=== PATIENT | female | born 1960 | race Caucasian/White ===

== ENCOUNTER 2018-11-13 15:09 | Outpatient (REF) | payer MEDICARE, SELFPAY ==
[2018-11-13 19:31] LABS: COMMENT (LAB VIEW ONLY) 178.26 mg/dL; Microalb ug/mg Crea 106.6 ug/mg Cr
== END 2018-11-13 15:29 ==
LOC: LBN 15:09
PROVIDERS: PCP Nurse Practitioner; Visit Provider Nurse Practitioner
DX: E11.9 Type 2 diabetes mellitus without complications (principal); E66.9 Obesity, unspecified; E78.5 Hyperlipidemia, unspecified; I10 Essential (primary) hypertension
CPT/HCPCS: 82043; 82570

== ENCOUNTER 2019-02-17 13:20 | Outpatient (CLI) | payer MEDICARE, SELFPAY ==
[2019-02-17 14:42] LABS: BUN 14 mg/dL (7-18); CREATININE 0.76 mg/dL (0.55-1.02); Calcium 8.6 mg/dL (8.5-10.1); Cholesterol 175 mg/dL (50-200); Glucose 128 mg/dL (70-100); HDL Cholesterol 42 mg/dL (40-60); Triglyceride 166 mg/dL (30-150)
[2019-02-17 14:43] LABS: ALT 22 U/L (12-78); AST 12 U/L (15-37); Albumin 3.5 g/dL (3.4-5.0); Alkaline Phosphatase 85 U/L (46-116); Anion Gap 9.2 mmol/L (3-11); Bilirubin, Total 0.6 mg/dL (0.2-1.0); CO2 27.8 mmol/L (21.0-32.0); Calculated LDL 100 mg/dL; Chloride 101 mmol/L (98-107); Sodium 138 mmol/L (136-145); Total Protein 6.9 g/dL (6.4-8.2)
[2019-02-17 14:48] LABS: Hemoglobin A1C 6.6 % (4.5-6.2)
== END 2019-02-17 13:40 ==
PROVIDERS: PCP Nurse Practitioner; Visit Provider Nurse Practitioner
DX: E78.5 Hyperlipidemia, unspecified (principal); I10 Essential (primary) hypertension; E11.9 Type 2 diabetes mellitus without complications; I63.50 Cerebral infarction due to unspecified occlusion or stenosis of unspecified cerebral artery; E66.9 Obesity, unspecified
CPT/HCPCS: 36415; 80053; 80061; 83721; 83036

== ENCOUNTER 2019-12-29 13:48 | Outpatient (CLI) | payer MEDICARE, SELFPAY ==
[2019-12-30 14:07] LABS: COVID-19 RT-PCR UVMMC Result Negative (Negative)
== END 2019-12-29 14:08 ==
PROVIDERS: PCP Nurse Practitioner; Visit Provider Nurse Practitioner
DX: R05 Cough (principal); R11.10 Vomiting, unspecified; R50.9 Fever, unspecified; R68.83 Chills (without fever)
CPT/HCPCS: U0003

== ENCOUNTER 2020-09-20 01:51 | Outpatient (CLI) | payer MEDICARE, SELFPAY ==
--- NOTE | 2020-09-20 15:50 | DI.MAMMO_ITS ---
EXAM: MG MAMMO SCREENING CLINICAL HISTORY: screening, Z12.39 TECHNIQUE: Bilateral full field digital CC and MLO mammographic images were obtained with 3D tomosyn thesis and utilizing computer aided detection (CAD). COMPARISON: Available for comparison. FINDINGS: Masses/Architectural Distortion: None seen. Microcalcifications: No suspicious pleomorphic-type are seen. Skin Thickening/Nipple Retraction: None. IMPRESSION: 1. No significant interval change with no specific features of malignancy noted. 2. Unless there is more urgent need, screening mammography is recommended, as per [employer] guidelines. BI-RADS Category 1 - Negative Breast Density - Category A - Almost entirely fatty Breast density category C or D implies that the patient has dense breast tissue. Dense breast tissue is very common and is not abnormal but dense breast tissue can make it harder to find cancer on a ma mmogram. Also, dense breast tissue may increase their breast cancer risk. This information about the result of the mammogram report was provided to the patient to raise their awareness. Use this report when you speak with the patient about their risks for breast cancer, which includes their family hist ory. At that time, you may recommend for more screening tests (Ultrasound or MRI) as they might be us eful based on their risk. A negative radiographic report should not delay biopsy if a dominant or clinically suspicious mass is present. Up to ten percent of cancers are not identified on mammography. A negative report may reinforce clinical impression. Adenosis and dense breasts may obscure an underlying neoplasm. False positive reports average 6 to 10%. Patient will receive a letter notifying them of these results.
== END 2020-09-20 02:11 ==
PROVIDERS: PCP Nurse Practitioner; Visit Provider Nurse Practitioner
DX: Z12.31 Encounter for screening mammogram for malignant neoplasm of breast (principal)
CPT/HCPCS: 77063; 77067

== ENCOUNTER 2020-09-27 02:50 | Outpatient (CLI) | payer MEDICARE, SELFPAY ==
[2020-09-27 10:42] LABS: Hemoglobin A1C 6.3 % (<5.7)
[2020-09-27 11:18] LABS: ALT 25 U/L (14-59); AST 13 U/L (15-37); Albumin 3.8 g/dL (3.4-5.0); Alkaline Phosphatase 87 U/L (46-116); Anion Gap 10.3 mmol/L (3-11); BUN 17 mg/dL (7-18); Bilirubin, Total 0.6 mg/dL (0.2-1.0); CO2 28.7 mmol/L (21.0-32.0); CREATININE 0.7 mg/dL (0.55-1.02); Calcium 9.1 mg/dL (8.5-10.1); Calculated LDL 110 mg/dL (<100); Chloride 100 mmol/L (98-107); Cholesterol 188 mg/dL (<200); Glucose 147 mg/dL (74-106); HDL Cholesterol 54 mg/dL (40-60); Sodium 139 mmol/L (136-145); Total Protein 7.6 g/dL (6.4-8.2); Triglyceride 122 mg/dL (<150)
== END 2020-09-27 02:51 | disposition home or self-care (01) ==
LOC: LBO 02:51
PROVIDERS: PCP Nurse Practitioner; Visit Provider Nurse Practitioner
DX: I10 Essential (primary) hypertension (principal); E11.9 Type 2 diabetes mellitus without complications; E78.5 Hyperlipidemia, unspecified; E66.9 Obesity, unspecified
CPT/HCPCS: 36415; 80053; 80061; 83036

== ENCOUNTER → 2021-11-14 13:15 | Outpatient (BNVA) | payer MEDICARE, SELFPAY | PROVIDERS: PCP Nurse Practitioner; Referring Provider Nurse Practitioner; Visit Provider Surgery | DX: S31.105A Unspecified open wound of abdominal wall, periumbilic region without penetration into peritoneal cavity, initial encounter (principal); X58.XXXA Exposure to other specified factors, initial encounter; Z51.89 Encounter for other specified aftercare; E11.9 Type 2 diabetes mellitus without complications; F17.210 Nicotine dependence, cigarettes, uncomplicated; I10 Essential (primary) hypertension; E66.9 Obesity, unspecified | CPT/HCPCS: 97605; 99203 ==

== ENCOUNTER → 2021-11-21 11:00 | Outpatient (BNVA) | payer MEDICARE, SELFPAY | PROVIDERS: PCP Nurse Practitioner; Referring Provider Nurse Practitioner; Visit Provider Surgery | DX: Z48.00 Encounter for change or removal of nonsurgical wound dressing (principal); L98.491 Non-pressure chronic ulcer of skin of other sites limited to breakdown of skin; S31.109A Unspecified open wound of abdominal wall, unspecified quadrant without penetration into peritoneal cavity, initial encounter; X58.XXXA Exposure to other specified factors, initial encounter | CPT/HCPCS: 11104; 97605; 99213 ==

== ENCOUNTER 2021-11-21 12:45 | Outpatient (REF) | payer MEDICARE, SELFPAY ==
--- NOTE | 2021-11-21 11:20 | SKI_PTH ---
PATIENT: Mckenzie Rebolledo LOC: [facility] U#:[id number] AGE/SX: 61/F ROOM: RE11/21/[address]: Julia Ortega MD : 1960 BED: DIS: 11/21/2021 SPEC #: [id number] RECD: 11/21/21 12:51 STATUS: DEANNA REQ #: [id number] ARMANDO: 11/21/21 11:[address]: Julia Ortega DEPT: Surgical Specimen RECD BY: Sabrina Chen ENTERED: 11/21/21 12:52 SP TYPE: SKI OTHR DR: Anali Sequeira APRN Tissues: 1 - SKIN BIOPSY(SHAVE/PUNCH) Procedures: SKIN LEVEL 4 Comments: [id number]
== END 2021-11-21 12:46 | disposition home or self-care (01) ==
LOC: LBN 12:45
PROVIDERS: PCP Nurse Practitioner; Visit Provider Surgery
DX: L98.491 Non-pressure chronic ulcer of skin of other sites limited to breakdown of skin (principal); L30.8 Other specified dermatitis
CPT/HCPCS: 88305

== ENCOUNTER → 2021-11-27 13:50 | Outpatient (BNVA) | payer MEDICARE, SELFPAY | PROVIDERS: PCP Nurse Practitioner; Referring Provider Nurse Practitioner; Visit Provider Physical Therapy Assistant | DX: Z48.00 Encounter for change or removal of nonsurgical wound dressing (principal) | CPT/HCPCS: 97605 ==

== ENCOUNTER → 2021-12-01 08:31 | Outpatient (BNVA) | payer MEDICARE, SELFPAY | PROVIDERS: PCP Nurse Practitioner; Referring Provider Nurse Practitioner; Visit Provider Physical Therapy Assistant | DX: S31.105A Unspecified open wound of abdominal wall, periumbilic region without penetration into peritoneal cavity, initial encounter (principal); X58.XXXA Exposure to other specified factors, initial encounter; Z51.89 Encounter for other specified aftercare | CPT/HCPCS: 97605 ==

== ENCOUNTER 2021-12-05 02:43 | Outpatient (CLI) | payer MEDICARE, SELFPAY ==
[2021-12-05 09:12] LABS: Abs Immature Grans 0.04 10^3/uL (0.0-0.06); Absolute Eosinophil Count 0.36 10^3/uL (0.0-0.7); Absolute Lymphocyte Count 2.31 10^3/uL (1.2-3.4); Absolute Monocyte Count 0.73 10^3/uL (0.1-0.8); Basophils % 0.9; Eosinophils % 3.4; HCT 45.7 % (36.0-46.0); HGB 14.1 g/dL (11.2-15.7); Immature Grans % 0.4; Lymphocytes % 21.7; MCH 25.6 pg (27.0-33.0); MCHC 30.9 % (32.0-36.0); MCV 83 fL (80-95); MPV 9.3 fL (8.0-11.0); Monocytes % 6.9; Neutrophils % 66.7; Platelet Count 373 10^3/uL (130-400); RBC 5.51 10^6/uL (3.93-5.22); RDW 15.3 % (11.7-14.6); RDW-SD 46.2 fL; WBC 10.64 10^3/uL (4.4-10.8)
[2021-12-05 09:39] LABS: Hemoglobin A1C 6.7 % (<5.7)
[2021-12-05 09:50] LABS: COMMENT (LAB VIEW ONLY) 111.53 mg/dL; Microalb ug/mg Crea 67.2 ug/mg Cr
[2021-12-05 10:34] LABS: ALT 25 U/L (14-59); AST 11 U/L (15-37); Albumin 3.8 g/dL (3.4-5.0); Alkaline Phosphatase 99 U/L (46-116); Anion Gap 12.5 mmol/L (3-11); BUN 19 mg/dL (7-18); Bilirubin, Total 0.5 mg/dL (0.2-1.0); CO2 28.5 mmol/L (21.0-32.0); CREATININE 0.8 mg/dL (0.55-1.02); Calcium 9.1 mg/dL (8.5-10.1); Calculated LDL 89 mg/dL (<100); Chloride 98 mmol/L (98-107); Cholesterol 179 mg/dL (<200); Glucose 159 mg/dL (74-106); HDL Cholesterol 52 mg/dL (40-60); Sodium 139 mmol/L (136-145); Triglyceride 192 mg/dL (<150)
== END 2021-12-05 02:44 | disposition home or self-care (01) ==
LOC: LBO 02:43
PROVIDERS: PCP Nurse Practitioner; Visit Provider Nurse Practitioner
DX: E11.9 Type 2 diabetes mellitus without complications (principal); E66.9 Obesity, unspecified; I10 Essential (primary) hypertension; F17.210 Nicotine dependence, cigarettes, uncomplicated; R79.9 Abnormal finding of blood chemistry, unspecified; Z51.89 Encounter for other specified aftercare
CPT/HCPCS: 36415; 80053; 80061; 97605; 99213; 82043; 82570; 83036; 84443; 85025

== ENCOUNTER → 2021-12-08 14:19 | Outpatient (BNVA) | payer MEDICARE, SELFPAY | PROVIDERS: PCP Nurse Practitioner; Referring Provider Nurse Practitioner; Visit Provider Physical Therapy Assistant | DX: Z48.00 Encounter for change or removal of nonsurgical wound dressing (principal); S31.105A Unspecified open wound of abdominal wall, periumbilic region without penetration into peritoneal cavity, initial encounter; X58.XXXA Exposure to other specified factors, initial encounter | CPT/HCPCS: 99213 ==

== ENCOUNTER → 2021-12-12 13:12 | Outpatient (BNVA) | payer MEDICARE, SELFPAY | PROVIDERS: PCP Nurse Practitioner; Referring Provider Nurse Practitioner; Visit Provider Physical Therapy Assistant | DX: Z51.89 Encounter for other specified aftercare (principal); S31.105A Unspecified open wound of abdominal wall, periumbilic region without penetration into peritoneal cavity, initial encounter; X58.XXXA Exposure to other specified factors, initial encounter | CPT/HCPCS: 99213 ==

== ENCOUNTER → 2021-12-18 13:13 | Outpatient (BNVA) | payer MEDICARE, SELFPAY | PROVIDERS: PCP Nurse Practitioner; Referring Provider Nurse Practitioner; Visit Provider Physical Therapy Assistant | DX: S31.105A Unspecified open wound of abdominal wall, periumbilic region without penetration into peritoneal cavity, initial encounter (principal); X58.XXXA Exposure to other specified factors, initial encounter; F17.210 Nicotine dependence, cigarettes, uncomplicated; Z51.89 Encounter for other specified aftercare | CPT/HCPCS: 99213 ==

== ENCOUNTER → 2021-12-20 11:32 | Outpatient (BNVA) | payer MEDICARE, SELFPAY | PROVIDERS: PCP Nurse Practitioner; Referring Provider Nurse Practitioner; Visit Provider Physical Therapy Assistant | DX: S31.105A Unspecified open wound of abdominal wall, periumbilic region without penetration into peritoneal cavity, initial encounter (principal); X58.XXXA Exposure to other specified factors, initial encounter; Z51.89 Encounter for other specified aftercare | CPT/HCPCS: 99213 ==

== ENCOUNTER → 2021-12-22 13:14 | Outpatient (BNVA) | payer MEDICARE, SELFPAY | PROVIDERS: PCP Nurse Practitioner; Referring Provider Nurse Practitioner; Visit Provider Physical Therapy Assistant | DX: S31.105A Unspecified open wound of abdominal wall, periumbilic region without penetration into peritoneal cavity, initial encounter (principal); X58.XXXA Exposure to other specified factors, initial encounter; Z51.89 Encounter for other specified aftercare | CPT/HCPCS: 99213 ==

== ENCOUNTER → 2021-12-25 13:16 | Outpatient (BNVA) | payer MEDICARE, SELFPAY | PROVIDERS: PCP Nurse Practitioner; Referring Provider Nurse Practitioner; Visit Provider Physical Therapy Assistant | DX: S31.105A Unspecified open wound of abdominal wall, periumbilic region without penetration into peritoneal cavity, initial encounter (principal); X58.XXXA Exposure to other specified factors, initial encounter; Z51.89 Encounter for other specified aftercare | CPT/HCPCS: 99212 ==

== ENCOUNTER → 2021-12-27 12:55 | Outpatient (BNVA) | payer MEDICARE, SELFPAY | PROVIDERS: PCP Nurse Practitioner; Referring Provider Nurse Practitioner; Visit Provider Physical Therapy Assistant | DX: S31.105A Unspecified open wound of abdominal wall, periumbilic region without penetration into peritoneal cavity, initial encounter (principal); X58.XXXA Exposure to other specified factors, initial encounter; Z51.89 Encounter for other specified aftercare | CPT/HCPCS: 99212 ==

== ENCOUNTER → 2021-12-29 12:59 | Outpatient (BNVA) | payer MEDICARE, SELFPAY | PROVIDERS: PCP Nurse Practitioner; Referring Provider Nurse Practitioner; Visit Provider Physical Therapy Assistant | DX: S31.105D Unspecified open wound of abdominal wall, periumbilic region without penetration into peritoneal cavity, subsequent encounter (principal); X58.XXXD Exposure to other specified factors, subsequent encounter | CPT/HCPCS: 99212 ==

== ENCOUNTER → 2022-01-01 14:21 | Outpatient (BNVA) | payer MEDICARE, SELFPAY | PROVIDERS: PCP Nurse Practitioner; Referring Provider Nurse Practitioner; Visit Provider Physical Therapy Assistant | DX: S31.105D Unspecified open wound of abdominal wall, periumbilic region without penetration into peritoneal cavity, subsequent encounter (principal); X58.XXXD Exposure to other specified factors, subsequent encounter | CPT/HCPCS: 99212 ==

== ENCOUNTER → 2022-01-03 13:02 | Outpatient (BNVA) | payer MEDICARE, SELFPAY | PROVIDERS: PCP Nurse Practitioner; Referring Provider Nurse Practitioner; Visit Provider Physical Therapy Assistant | DX: S31.105D Unspecified open wound of abdominal wall, periumbilic region without penetration into peritoneal cavity, subsequent encounter (principal); X58.XXXD Exposure to other specified factors, subsequent encounter | CPT/HCPCS: 99212 ==

== ENCOUNTER → 2022-01-05 13:39 | Outpatient (BNVA) | payer MEDICARE, SELFPAY | PROVIDERS: PCP Nurse Practitioner; Referring Provider Nurse Practitioner; Visit Provider Physical Therapy Assistant | DX: S31.105D Unspecified open wound of abdominal wall, periumbilic region without penetration into peritoneal cavity, subsequent encounter (principal); X58.XXXD Exposure to other specified factors, subsequent encounter | CPT/HCPCS: 99212 ==

== ENCOUNTER → 2022-01-08 13:01 | Outpatient (BNVA) | payer MEDICARE, SELFPAY | PROVIDERS: PCP Nurse Practitioner; Referring Provider Nurse Practitioner; Visit Provider Physical Therapy Assistant | DX: S31.105D Unspecified open wound of abdominal wall, periumbilic region without penetration into peritoneal cavity, subsequent encounter (principal); X58.XXXD Exposure to other specified factors, subsequent encounter | CPT/HCPCS: 99212 ==

== ENCOUNTER → 2022-01-10 09:41 | Outpatient (BNVA) | payer MEDICARE, SELFPAY | PROVIDERS: PCP Nurse Practitioner; Referring Provider Nurse Practitioner; Visit Provider Physical Therapy Assistant | DX: S31.105D Unspecified open wound of abdominal wall, periumbilic region without penetration into peritoneal cavity, subsequent encounter (principal); X58.XXXD Exposure to other specified factors, subsequent encounter | CPT/HCPCS: 99212 ==

== ENCOUNTER → 2022-01-12 12:59 | Outpatient (BNVA) | payer MEDICARE, SELFPAY | PROVIDERS: PCP Nurse Practitioner; Referring Provider Nurse Practitioner; Visit Provider Physical Therapy Assistant | DX: S31.105D Unspecified open wound of abdominal wall, periumbilic region without penetration into peritoneal cavity, subsequent encounter (principal); X58.XXXD Exposure to other specified factors, subsequent encounter | CPT/HCPCS: 99212 ==

== ENCOUNTER → 2022-01-19 12:59 | Outpatient (BNVA) | payer MEDICARE, SELFPAY | PROVIDERS: PCP Nurse Practitioner; Referring Provider Nurse Practitioner; Visit Provider Physical Therapy Assistant | DX: S31.105D Unspecified open wound of abdominal wall, periumbilic region without penetration into peritoneal cavity, subsequent encounter (principal); X58.XXXD Exposure to other specified factors, subsequent encounter | CPT/HCPCS: 99212 ==

== ENCOUNTER → 2022-01-23 13:45 | Outpatient (BNVA) | payer MEDICARE, SELFPAY | PROVIDERS: PCP Nurse Practitioner; Referring Provider Nurse Practitioner; Visit Provider Surgery | DX: S31.105A Unspecified open wound of abdominal wall, periumbilic region without penetration into peritoneal cavity, initial encounter (principal); X58.XXXA Exposure to other specified factors, initial encounter | CPT/HCPCS: 99212 ==

== ENCOUNTER → 2022-01-26 13:37 | Outpatient (BNVA) | payer MEDICARE, SELFPAY | PROVIDERS: PCP Nurse Practitioner; Referring Provider Nurse Practitioner; Visit Provider Physical Therapy Assistant | DX: S31.105A Unspecified open wound of abdominal wall, periumbilic region without penetration into peritoneal cavity, initial encounter (principal); X58.XXXA Exposure to other specified factors, initial encounter; F17.210 Nicotine dependence, cigarettes, uncomplicated | CPT/HCPCS: 99213 ==

== ENCOUNTER 2022-01-29 00:01 | Outpatient (CLI) | payer MEDICARE, SELFPAY ==
--- NOTE | 2022-01-29 13:53 | DI.US_ITS ---
APPROVED REPORT EXAM: Comprehensive 2D, Doppler, and color-flow Echocardiogram Patient Location: Out-Patient [employer] Installer: Grecia Lopez RDCS (AE) Indications: Tachycardia Other Information Study Quality: Fair. Technically limited study due to body habitus, smoker. Conclusion Normal left ventricular wall thickness and chamber size. Estimated ejection fraction 55 to 60%. Wal l motion is normal Right ventricle appears grossly normal in size and systolic function The atria are normal in size There is no structural or hemodynamically significant valvular disease Borderline dilated ascending aorta, 3.37 cm Wall motion Left Ventricle The left ventricle is normal size. The left ventricular systolic function is normal. The left ventric ular ejection fraction is within the normal range. There is normal left ventricular wall thickness. T here is normal LV segmental wall motion. There is no ventricular septal defect visualized. LVEF is 55 -60%. Right Ventricle Right ventricle is grossly normal in size. Right ventricular systolic function is grossly normal. Atria The left atrium size is normal. The right atrium size is normal. The interatrial septum is intact wit h no evidence for an atrial septal defect. Aortic Valve The aortic valve is normal in structure. There is no aortic valvular stenosis. No aortic regurgitatio n is present. Mitral Valve The mitral valve is normal in structure. No evidence of mitral valve stenosis. Trace mitral regurgita tion. Tricuspid Valve The tricuspid valve is normal in structure. There is no tricuspid valve stenosis. Trace tricuspid reg urgitation. Pulmonic Valve Pulmonic valve is not well visualized. There is no pulmonic valvular stenosis. There is no pulmonic v alvular regurgitation. Great Vessels The aortic root is normal in size. The ascending aorta is borderline dilated. Aortic arch is normal i n caliber. IVC is normal in size and collapses >50% with inspiration. Pericardium There is no pericardial effusion. 2D Dimensions IVSD d PLAX 1.03 cm F: 0.6-1.0 LVPW d PLAX 1.03 cm F: 0.6 - 1.0 LVID d PLAX 4.64 cm F: 3.8 - 5.2 LVDs 3.30 cm F: 2.2 - 3.5 Ao Root d 2.64 cm F: 2.7 - 3.3 RA Area A4C 10.30 cm2 RA Vol/ BSA A4C s A-L 12.6 mL/m2 Ao Asc Diam d 3.37 cm F: 2.3 - 3.1 LV EF Teichholz 55.2 % FS 28.60 % M-Mode TAPSE 1.75 cm (M/F) >1.7 Aortic Valve LVOT Area 3.10 cm2 AoV Area Vmax 2.90 cm2 LVOT Vmax 1.09 m/s AoV Area/ BSA (Vmax) 1.52 cm2/m2 LVOT Mean Isaac. 0.77 m/s SELVIN Mean Isaac. 2.80 cm2 LVOT Peak Grad 4.8 mmHg SELVIN Mean Isaac. Index 1.47 cm2/m2 LVOT Mean Grad 2.7 mmHg LVOT VTI 0.166 m LVOT Diam s 1.95 cm AoV Vmax 1.17 m/s Velocity Ratio 0.93 AoV Mean Isaac. 0.86 m/s AoV Peak Grad 5.4 mmHg LVOT SV 51.51 mL AoV Mean Grad 3.2 mmHg AoV VTI 0.171 m AoV Area VTI 3.01 cm2 AoV Area/ BSA (VTI) 1.58 cm/m2 Mitral Valve MV VTI 0.154 m MV Area VTI 3.34 (4.0-6.0 cm2) Pulmonary Valve PV Vmax 0.81 (0.5-1.5 m/s) RVOT Peak Gr. 3.14 mmHg PV Peak Grad 2.7 mmHg RVOT Mean Gr. 1.60 mmHg PV Mean Grad 1.6 mmHg RVOT VTI 0.122 m PV VTI 0.135 m RVOT Vmax 0.89 m/s
== END 2022-01-29 00:21 ==
LOC: DI 00:02
PROVIDERS: PCP Nurse Practitioner; Visit Provider Nurse Practitioner
DX: R00.0 Tachycardia, unspecified (principal)
CPT/HCPCS: 93306; 99213

== ENCOUNTER → 2022-02-01 13:03 | Outpatient (BNVA) | payer MEDICARE, SELFPAY | PROVIDERS: PCP Nurse Practitioner; Referring Provider Nurse Practitioner; Visit Provider Physical Therapy Assistant | DX: S31.105A Unspecified open wound of abdominal wall, periumbilic region without penetration into peritoneal cavity, initial encounter (principal); X58.XXXA Exposure to other specified factors, initial encounter; Z51.89 Encounter for other specified aftercare | CPT/HCPCS: 99213 ==

== ENCOUNTER → 2022-02-05 13:06 | Outpatient (BNVA) | payer MEDICARE, SELFPAY | PROVIDERS: PCP Nurse Practitioner; Referring Provider Nurse Practitioner; Visit Provider Physical Therapy Assistant | DX: S31.105D Unspecified open wound of abdominal wall, periumbilic region without penetration into peritoneal cavity, subsequent encounter (principal); X58.XXXD Exposure to other specified factors, subsequent encounter; F17.210 Nicotine dependence, cigarettes, uncomplicated; Z51.89 Encounter for other specified aftercare | CPT/HCPCS: 99213 ==

== ENCOUNTER → 2022-02-13 13:01 | Outpatient (BNVA) | payer MEDICARE, SELFPAY | PROVIDERS: PCP Nurse Practitioner; Referring Provider Nurse Practitioner; Visit Provider Physical Therapy Assistant | DX: S31.105D Unspecified open wound of abdominal wall, periumbilic region without penetration into peritoneal cavity, subsequent encounter (principal); X58.XXXD Exposure to other specified factors, subsequent encounter; Z51.89 Encounter for other specified aftercare | CPT/HCPCS: 99213 ==

== ENCOUNTER 2022-02-19 04:27 | Outpatient (RCR) | payer MEDICARE, SELFPAY ==
--- NOTE | 2022-02-19 13:00 | HOLTER_ITS ---
APPROVED REPORT Conclusion This is a 48-hour Holter monitor ordered for tachycardia Predominant rhythm was sinus. Average heart rate was 99, minimum 78, maximum 144. Heart rate during sleep fell generally into the 80s, while awake average 1 10-1 30 There were very rare isolated ventricular ectopic beats There were very rare isolated atrial premature beats There was no atrial fibrillation, no high-grade AV block, no pauses greater than 3 seconds No patient symptoms were reported
== END 2022-03-14 23:59 | disposition home or self-care (01) ==
LOC: RT 04:27
PROVIDERS: PCP Nurse Practitioner; Visit Provider Nurse Practitioner
DX: R00.0 Tachycardia, unspecified (principal)
CPT/HCPCS: 93227; 93225; 93226

== ENCOUNTER → 2022-02-20 13:01 | Outpatient (BNVA) | payer MEDICARE, SELFPAY | PROVIDERS: PCP Nurse Practitioner; Referring Provider Nurse Practitioner; Visit Provider Physical Therapy Assistant | DX: S31.105A Unspecified open wound of abdominal wall, periumbilic region without penetration into peritoneal cavity, initial encounter (principal); X58.XXXA Exposure to other specified factors, initial encounter; R00.0 Tachycardia, unspecified; F17.210 Nicotine dependence, cigarettes, uncomplicated; Z51.89 Encounter for other specified aftercare | CPT/HCPCS: 99213 ==

== ENCOUNTER → 2022-02-27 12:59 | Outpatient (BNVA) | payer MEDICARE, SELFPAY | PROVIDERS: PCP Nurse Practitioner; Referring Provider Nurse Practitioner; Visit Provider Surgery | DX: S31.105A Unspecified open wound of abdominal wall, periumbilic region without penetration into peritoneal cavity, initial encounter (principal); X58.XXXA Exposure to other specified factors, initial encounter; Z51.89 Encounter for other specified aftercare | CPT/HCPCS: 99212 ==

== ENCOUNTER → 2022-03-01 02:11 | Outpatient (CLI) | payer MEDICARE, SELFPAY ==
--- NOTE | 2022-03-01 07:15 | DI.MAMMO_ITS ---
Exam(s) MAMMO SCREENING EXAM: MAMMO SCREENING CLINICAL HISTORY: screening,z12.39 TECHNIQUE: Mammograms were interpreted according to the usual protocol including computer analysis w [employer] CAD system, tomosynthesis and C-view imaging. COMPARISON: 2012 through 2020 FINDINGS: The breasts are composed of mainly fatty density , Breast Density category A. No suspicious masses or suspicious microcalcifications are seen. No skin thickening or abnormal axillary lymph nodes are seen. There has been no significant change from prior exams. IMPRESSION: BI-RADS Category 1, Negative mammogram Yearly screening mammography is recommended. Breast Density - Category A, fatty density. A negative radiographic report should not delay biopsy if a dominant or clinically suspicious mass is present. Up to ten percent of cancers are not identified on mammography. A negative report may reinforce clinical impression. Adenosis and dense breasts may obscure an underlying neoplasm. False positive reports average 6 to 10%. Patient will receive a letter notifying them of these results.
== END ==
PROVIDERS: PCP Nurse Practitioner; Visit Provider Nurse Practitioner
DX: Z12.31 Encounter for screening mammogram for malignant neoplasm of breast (principal)
CPT/HCPCS: 77063; 77067

== ENCOUNTER → 2022-03-06 13:05 | Outpatient (BNVA) | payer MEDICARE, SELFPAY | PROVIDERS: PCP Nurse Practitioner; Referring Provider Nurse Practitioner; Visit Provider Surgery | DX: Z51.89 Encounter for other specified aftercare (principal); S31.105A Unspecified open wound of abdominal wall, periumbilic region without penetration into peritoneal cavity, initial encounter; X58.XXXA Exposure to other specified factors, initial encounter | CPT/HCPCS: 99212 ==

== ENCOUNTER 2022-03-12 03:44 | Outpatient (CLI) | payer MEDICARE, SELFPAY ==
[2022-03-12 12:09] LABS: Source Nasal/Nares
[2022-03-12 15:15] LABS: COVID-19 PCR Negative (Negative)
== END 2022-03-12 03:45 | disposition home or self-care (01) ==
LOC: LBO 03:44
PROVIDERS: PCP Nurse Practitioner; Visit Provider Surgery
DX: Z01.818 Encounter for other preprocedural examination (principal); Z20.822 Contact with and (suspected) exposure to COVID-19
CPT/HCPCS: 87635

== ENCOUNTER 2022-03-14 05:52 | Day surgery (SDC) | payer MEDICARE, SELFPAY ==
[2022-03-14] VITALS (8 sets, daily range): BP systolic 120–195; BP diastolic 69–94; PULSE 88–98; RESP 14–97; TEMP 36.4–36.7; O2SAT 89–100; BMI 41.6
--- NOTE | 2022-03-14 06:39 | ROE_ITS ---
Date of service: 03/14/22 Time of Service: 07:45 Operative Note Operative Note DATE OF PROCEDURE: 03/14/22 PRE-OP DIAGNOSIS: chronic abdominal wound POST-OP DIAGNOSIS: same PROCEDURE: Skin graft to chronic wound with AYLEEN application SURGEON: Julia Ortega DIALYSIS CHIEF EQUIPMENT TECHNICIAN: Katie Mercado Refer to Anesthesia Record PATHOLOGY: none sent COMPLICATIONS: None Patient was transported to: same day Patient's condition: stable Indications: Mckenzie is a pleasant 62-year-old female who have both been seen for quite some time for chronic anterior abdominal wound.? It is slowly getting some epithelialization.? I recommended placing a skin graft to the try to get the wound to close a little bit faster.? Surgery was reviewed with the patient as well as the risks and benefits.? Complications include but are not limited to bleeding, infection, skin graft necrosis. Questions were entertained and answered to her satisfaction and she wished to proceed. Findings: some granulation tissue on the chronic wound Procedure Description: After informed consent was obtained the patient was taken to the operating room. She was placed in a supine position sitting at the edge of the table. A spinal anesthetic was attempted by anesthesia but after numerous tries this was unsuccessful. The patient was then asked to lay down and she was placed under general anesthesia and an LMA was placed. At this time a timeout was done. The patient's name and date of , allergies to medications, procedure to be done, DVT prophylaxis, antibiotic given were all reviewed. Fire risk was assessed. Next the patient's abdomen was prepped with iodine. Her right upper thigh was prepped with chlorhexidine. Both areas with then draped in a sterile standard fashion. At this point Quarter percent bupivacaine with epinephrine was injected into the dermis and subcutaneous tissue on the right upper thigh. Mineral oil was then applied to the skin. A 5 x 7 cm piece of split thickness skin graft was then removed from the right upper thigh. The skin was placed through the mesher. A moist lap was placed over the donor site. Next the abdominal wound was gently scraped at the edges to make sure that there was good bleeding. Any fibrinous tissue was removed. The meshed skin was then placed onto the wound and secured with 5-0 Vicryl sutures circumferentially. The entire wound was covered. The wound measured 8.5 x 6.5 x 0.2 cm. The skin around the skin graft was then cleaned with a moist lap. The skin was dried. A Vaseline dressing was applied to the skin graft and to ayleen dressings were applied to the wound. There was a good seal when the suction was turned on. The donor side was then cleaned and dried. Another piece of Xeroform was applied to the donor site and covered with Tegaderm. The patient was transferred from the operating room table to the [facility] and woken up, extubated and taken back to recovery in stable condition. There were no immediate complications. Needle and instrument counts were correct.
[2022-03-14] MEDS: Acetaminophen 500 MG TAB 1000 MG PO (06:42)
[2022-03-14] MEDS: Normal Saline 1,000 ML 30 ML IV (06:42)
[2022-03-14] MEDS: Gabapentin 300 MG CAP 600 MG PO (06:42)
[2022-03-14] MEDS: Celecoxib 200 MG CAP PO (06:42)
--- NOTE | 2022-03-14 06:42 | PDOC.DSDIS_ITS ---
Discharge Plan Disposition Patient Disposition: HOME Condition: Good Discharge Details Reason For Visit: skin graft Attending Provider: Julia Ortega Primary Care Provider: Anali Sequeira Home Meds and New Rx's Prescriptions: Continued (DME) blood sugar diagnostic strip See Dose Instructions .ROUTE .MEDSUPPLY Qty: 50 12RF Dose Instruction: As directed Rx Instructions: Test daily MediHoney (honey) 80 % gel 1 applic topical BID Qty: 44 3RF Rx Instructions: apply BID to abdominal wound mupirocin 2 % ointment 1 applic topical DAILY Qty: 22 0RF Rx Instructions: apply to abdominal wound daily PRN amitriptyline 100 mg tablet 100 mg PO QHS Qty: 90 3RF lisinopril 5 mg tablet 5 mg PO DAILY Qty: 90 3RF meloxicam 15 mg tablet 15 mg PO DAILY Qty: 90 3RF sertraline 100 mg tablet 150 mg PO DAILY Qty: 135 3RF Rx Instructions: 1.5 tabs daily spironolactone 100 mg tablet 100 mg PO DAILY Qty: 90 3RF oxycodone 5 mg tablet 5 mg PO 5X/DAY MDD 25mg PRN (Reason: pain) Qty: 140 0RF multivitamin 1 EACH tablet 1 ea PO DAILY ascorbic acid (vitamin C) 250 MG tablet 500 mg PO DAILY PRN aspirin 325 MG tablet 325 mg PO DAILY calcium carbonate [Tums Ultra] 400 MG tablet,chewable 400 mg PO BID cholecalciferol (vitamin D3) 1,000 UNIT tablet 1,000 unit PO DAILY sennosides-docusate sodium [Senna with Docusate Sodium] 1 EACH tablet 1 - 2 tab-cap PO DAILY Rx Instructions: 10/11/15 pt states works well RH betamethasone dipropionate 0.05 % cream 1 applic TP BID PRN (Reason: rsh knees, elbows) Qty: 45 3RF omeprazole 40 mg capsule,delayed release(DR/EC) 40 mg PO BID Qty: 180 3RF lovastatin 40 mg tablet 40 mg PO DAILY Qty: 90 3RF Rx Instructions: to lower cholesterol metformin 500 mg tablet 500 mg PO BID Qty: 180 3RF Rx Instructions: for diabetes acetaminophen 500 MG tablet 500 - 1,000 mg PO Q6H PRN PRN Discharge Instructions Additional Instructions: Activity at Home after surgery: 1. As tolerated Diet, Nutrition, & wound healin. Avoid alcohol until after you are recovered from your surgery 2. Make sure to eat plenty of lean protein (meat, fish, eggs, cottage cheese, beans) 3. Eat a variety of fruits and vegetables. Eat plenty of high fiber f oods to avoid constipation. 4. Drink plenty of liquids to stay hydrated and avoid constipation Pain Medications: 1. Tylenol 650mg every 6 hours as needed and Ibuprofen 600 mg every 6 hours as needed. You may alternate between the 2 medications every 3 hours 2. If a narcotic has been prescribed take as directed only for breakthrough pain For Constipation: 1. Take Milk of Magnesia or MiraLax as needed for constipation Other: 1. You may only sponge bathe for the next week 2. You may alternate ice Wound Care: 1. Keep the incisions clean and dry Please call our office if you develop: 1. Fevers >101.5 2. Nausea or Vomiting 3. Worsening pain 4. Redness and thick discharge from the wounds If after hours please call the Hospital at and ask to speak to the on-call surgeon Referrals: Julia Ortega MD [ [facility] STAFF PHYSICIAN] - 03/20/22 9:45 am Activity:: Activity as Tolerated Remove Dressings/Wound Care:: Do Not Remove Diet:: As Tolerated Discharge Orders Discharge Orders: Discharge Order (Routine); Ordered 03/14/22 Ordered By: Julia Ortega
--- NOTE | 2022-03-14 07:03 | W.ANESPRE ---
General Info Date of Service Date Performed: 03/14/22 Height: 5 ft Weight: 96.8 kg Body Mass Index (BMI): 41.6 Surgical Procedure: Operation Date: 03/14/22 07:40 Proposed Procedure Side Surgeon p Skin Graft from Lt Upper Thigh to Abdominal Wound Left Julia Ortega MD Meds Allergies and Home Medications Allergies Allergy/AdvReac Type Severity Reaction Status Date / Time codeine Allergy Severe rash Verified 03/14/22 06:23 itching Penicillins Allergy Intermediate rash Verified 03/14/22 06:23 fentanyl AdvReac Severe Dizziness/L Verified 03/14/22 06:23 ightheade Home Medication Medication Instructions Recorded ascorbic acid (vitamin C) 250 mg 500 mg PO DAILY PRN 09/16/12 tablet multivitamin 1 ea PO DAILY 09/16/12 aspirin 325 mg tablet 325 mg PO DAILY 06/02/13 calcium carbonate 400 mg calcium 400 mg PO BID 05/12/14 (1,000 mg) chewable tablet (Tums Ultra) cholecalciferol (vitamin D3) 25 1,000 unit PO DAILY 05/12/14 mcg (1,000 unit) tablet sennosides 8.6 mg-docusate sodium 1 - 2 tab-cap PO DAILY 10/11/15 50 mg tablet (Senna with Docusate Sodium) acetaminophen 500 mg tablet 500 - 1,000 mg PO Q6H PRN PRN 12/19/16 blood sugar diagnostic #50 ea 11/13/18 betamethasone dipropionate 0.05 % 1 applic topical BID PRN rsh 01/12/20 topical cream knees, elbows #45 grams lisinopril 5 mg tablet 5 mg PO DAILY #90 tab-caps 09/04/21 meloxicam 15 mg tablet 15 mg PO DAILY #90 tabs 09/04/21 sertraline 100 mg tablet 150 mg PO DAILY #135 tab-caps 09/04/21 spironolactone 100 mg tablet 100 mg PO DAILY #90 tab-caps 09/04/21 omeprazole 40 mg capsule,delayed 40 mg PO BID #180 caps 09/05/21 release amitriptyline 100 mg tablet 100 mg PO QHS #90 tabs 11/13/21 honey 80 % topical gel (MediHoney 1 applic topical BID #44 mL 11/13/21 (honey)) mupirocin 2 % topical ointment 1 applic topical DAILY #22 grams 11/13/21 lovastatin 40 mg tablet 40 mg PO DAILY #90 tabs 12/04/21 oxycodone 5 mg tablet 5 mg PO 5X/DAY PRN pain #140 tabs 02/13/22 metformin 500 mg tablet 500 mg PO BID #180 tabs 03/05/22 Current Visit Medications: Current Medications Generic Name Dose Route Start Last Admin Trade Name Freq PRN Reason Stop Dose Admin Acetaminophen 1,000 mg 03/14/22 06:00 03/14/22 06:42 Acetaminophen 500 Mg Tab PO 03/14/22 16:00 1,000 mg PREOP NOA Administration Celecoxib 200 mg 03/14/22 06:00 03/14/22 06:42 Celecoxib 200 Mg Cap PO 03/14/22 16:00 200 mg PREOP NOA Administration Gabapentin 600 mg 03/14/22 06:00 03/14/22 06:42 Gabapentin 300 Mg Cap PO 03/14/22 16:00 600 mg PREOP NOA Administration Sodium Chloride 1,000 mls @ 30 mls/hr 03/14/22 06:00 03/14/22 06:42 Saline 1000ml Bag IV 03/27/22 05:59 30 mls/hr INFUSION NOA Administration Cefazolin Sodium/Dextrose 2 gm in 50 mls @ 100 mls/hr 03/14/22 06:00 Ancef Duplex IVPB 03/14/22 16:00 PREOP NOA Ondansetron HCl 4 mg/ Sodium 52 mls @ 200 mls/hr 03/14/22 06:41 Chloride IVPB Q6H PRN PRN IV Miscellaneous Supplies 1 each 03/14/22 06:00 Iv Access IV 04/12/22 23:59 DIRECTED NOA Sodium Chloride 0 ml 03/14/22 06:00 Normal Saline Flush 10 Ml Syr IV 04/12/22 23:59 PRN PRN Sodium Chloride 0 ml 03/14/22 06:00 Normal Saline 10 Ml Vial IJ 04/12/22 23:59 DIRECTED PRN Sterile Water 0 ml 03/14/22 06:00 Water,Injection,Sterile 10 Ml Vial IJ 04/12/22 23:59 DIRECTED PRN Tramadol HCl 50 mg 03/14/22 06:41 Tramadol 50 Mg Tab PO Q6H PRN PRN Pain PFSH Active Problems Active Problems: Problem Status Onset Code Wound, open, abdominal wall, anterior S31.109A Diabetes mellitus type 2 in obese E11.69, E66.9 Abscess of left lower extremity L02.416 Painful orthopaedic hardware T84.84XA Tobacco dependence F17.200 Continuous chewing tobacco dependence 02/27/13 F17.220 Psoriasis 12/10/14 L40.9 Obesity 02/27/13 E66.9 Unspecified cerebral artery occlusion with cerebral infarction 07/20/11 I63.50 Medical History Medical History Abdominal pain (12/10/14) Abnormal blood chemistry Cervicalgia (07/20/11) Spine Center [facility] eval, 2004 Osteoarthritis Chills Chronic pain (09/02/13) Chronic pain Chronic pain of both shoulders (03/20/16) Cough Diabetes mellitus type 2 in nonobese (12/30/12) dx'ed 2011 at [facility] Disorder of back (07/20/11) [facility] work-up 2004 Osteoarthritis Essential hypertension (07/20/11) goal less 140/90 Fever Hirsutism (05/16/17) Hyperlipidemia (07/20/11) LDL goal 130 Lesion of nose Major depressive disorder, recurrent, unspecified (03/20/16) PCOS (polycystic ovarian syndrome) (02/18/18) Rotator cuff tear, right (~1976) Routine general medical examination at a health care facility Routine medical exam Spondylosis of cervical region without myelopathy or radiculopathy Tobacco smoke exposure (07/20/11) 1PPD Vomiting Surgical History Surgical History Abdominal hysterectomy (07/15/00) KATELIN/BSO not exact date [facility] Bimalleolar fracture (~01/2014) History of repair of inguinal hernia (~2004) Left elbow fracture (Unknown) Open abdominal wall wound (09/19/10) Repair of inguinal hernia (~2001) 2001,2005 DR JOSEPH S/P hardware removal 09/15/18 Left ankle ([facility]) Tobacco Smoking/Tobacco Use Status: Former Tobacco Use Alcohol Alcohol Intake: current Alcohol intake frequency: a few times a week Alcohol type: wine Substance Use Substance use: Occasionally Substance use type: marijuana Vital Signs and Lab Results Vital Signs Most Recent Vital Signs in EMR: Most Recent Vital Signs Temp Pulse Resp BP Pulse Ox 36.4 C L 94 H 18 146/89 H 100 03/14/22 06:15 03/14/22 06:15 03/14/22 06:15 03/14/22 06:15 03/14/22 06:15 Lab Results Blood Type / Crossmatch: No Data to Display Complete Blood Count: No Data to Display Complete Metabolic Panel: No Data to Display Liver Function Panel: No Data to Display Coagulation Panel: No Data to Display Cardiac Panel: No Data to Display Arterial Blood Gas: No Data to Display Venous Blood Gas: No Data to Display Pancreas Panel: No Data to Display Thyroid Panel: No Data to Display Infectious Disease: Coronavirus (COVID-19)(PCR) Negative (Negative) 03/12/22 11:00 Coronavirus 2019 Source Nasal/Nares 03/12/22 11:00 Blood Cultures: No Data to Display Toxicology Panel: No Data to Display Anesthesia Assessment and Plan Anesthesia History Personal History: No History of Anesthesia Complications Family History: No Family History of Anesthesia Complications Exercise Tolerance Exercise Tolerance: Metabolic Equivalents>4 Pertinent Negatives Pertinent Negatives: No Symptoms of GERD (Well controlled with medication ), No Major Cardiovascular Symptoms or Complaints, No Major Pulmonary Symptoms or Complaints (Smoker 50 pack years) and No History of CVA/TIA (Left occipital stroke 2010) Cardiac & Pulmonary Exam Cardiac Exam: Normal S1/S2 Heart Sounds Pulmonary Exam: Clear Bilateral Breath Sounds Implantable Cardiac Device Does patient have a Pacemaker or an ICD?: No Airway Exam Known Difficult Airway: No Mallampati Class: 4 Mouth Opening: Normal (> 3cm) Thyromental Distance: Less than 3 cm Neck Range of Motion: Full ROM and Limited ROM Neck Circumference: Thick Teeth Condition: Generalized Poor Dentition (Denies loose teeth ) ASA Classification ASA Score: ASA 3 Emergency Case?: No NPO Status NPO Status: NPO Clears >2 hours, Solids >8 hours Anesthesia Plan Resuscitation Status: Full Code Anesthesia Technique: Spinal Anesthesia Airway Planned: Natural Airway Monitors Used: Standard Monitors
[2022-03-14] MEDS: ceFAZolin 2 GM/50 ML BAG IVPB (07:33)
[2022-03-14] MEDS: Bupivacaine 0.25% Pres-Free W/EPI 30 ML VIAL (08:23)
--- NOTE | 2022-03-14 11:11 | W.ANESPOSTOP ---
Postoperative Evaluation Date, Time and Location Date Performed: 03/14/22 Time Performed: 11:12 Patient Location: Day Surgery Unit Vital Signs Most Recent Imported Vital Signs: Most Recent Vital Signs Temp Pulse Resp BP Pulse Ox 36.4 C L 89 18 143/82 H 94 03/14/22 09:55 03/14/22 09:55 03/14/22 09:55 03/14/22 09:55 03/14/22 09:55 Pain Score Most Recent Pain Score: Most Recent Pain Score Pain Level 0 03/14/22 09:55 Assessment Mental Status: Awake (Alert & Oriented to Patient Baseline) Airway and Respiratory Function: Patent airway with normal (patient baseline) respiratory exam Cardiovascular Function: Hemodynamically Stable Hydration Status: Adequately Hydrated Nausea & Vomiting: No Nausea or Vomiting Pain: Pt. Denies Any Pain Peripheral Nerve Block: Patient did not receive a nerve block
== END 2022-03-14 11:15 | disposition home or self-care (01) ==
PROVIDERS: PCP Nurse Practitioner; Visit Provider Surgery
PROC: (CPT 15100; principal; 2022-03-14 07:30)
DX: S31.109A Unspecified open wound of abdominal wall, unspecified quadrant without penetration into peritoneal cavity, initial encounter (principal); E11.9 Type 2 diabetes mellitus without complications; F17.220 Nicotine dependence, chewing tobacco, uncomplicated; E66.9 Obesity, unspecified; X58.XXXA Exposure to other specified factors, initial encounter
CPT/HCPCS: 15100; J0690; J1100; J1200; J1885; J2001; J2250; J2405

== ENCOUNTER → 2022-03-15 08:28 | Outpatient (BNVA) | payer MEDICARE, SELFPAY | PROVIDERS: PCP Nurse Practitioner; Referring Provider Nurse Practitioner; Visit Provider Physical Therapy Assistant | DX: Z48.817 Encounter for surgical aftercare following surgery on the skin and subcutaneous tissue (principal); S31.105A Unspecified open wound of abdominal wall, periumbilic region without penetration into peritoneal cavity, initial encounter; X58.XXXA Exposure to other specified factors, initial encounter ==

== ENCOUNTER → 2022-03-16 10:01 | Outpatient (BNVA) | payer MEDICARE, SELFPAY | PROVIDERS: PCP Nurse Practitioner; Referring Provider Nurse Practitioner; Visit Provider Surgery | DX: S31.105A Unspecified open wound of abdominal wall, periumbilic region without penetration into peritoneal cavity, initial encounter (principal); X58.XXXA Exposure to other specified factors, initial encounter; Z51.89 Encounter for other specified aftercare ==

== ENCOUNTER → 2022-03-20 09:44 | Outpatient (BNVA) | payer MEDICARE, SELFPAY | PROVIDERS: PCP Nurse Practitioner; Referring Provider Nurse Practitioner; Visit Provider Surgery | DX: Z48.817 Encounter for surgical aftercare following surgery on the skin and subcutaneous tissue (principal) ==

== ENCOUNTER → 2022-03-23 09:49 | Outpatient (BNVA) | payer MEDICARE, SELFPAY | PROVIDERS: PCP Nurse Practitioner; Referring Provider Nurse Practitioner; Visit Provider Surgery | DX: S31.105A Unspecified open wound of abdominal wall, periumbilic region without penetration into peritoneal cavity, initial encounter (principal); X58.XXXA Exposure to other specified factors, initial encounter; Z48.89 Encounter for other specified surgical aftercare ==

== ENCOUNTER → 2022-03-27 11:32 | Outpatient (BNVA) | payer MEDICARE, SELFPAY | PROVIDERS: PCP Nurse Practitioner; Referring Provider Nurse Practitioner; Visit Provider Surgery | DX: S31.105D Unspecified open wound of abdominal wall, periumbilic region without penetration into peritoneal cavity, subsequent encounter (principal); X58.XXXD Exposure to other specified factors, subsequent encounter; Z48.89 Encounter for other specified surgical aftercare ==

== ENCOUNTER → 2022-03-30 09:01 | Outpatient (BNVA) | payer MEDICARE, SELFPAY | PROVIDERS: PCP Nurse Practitioner; Referring Provider Nurse Practitioner; Visit Provider Surgery | DX: Z48.817 Encounter for surgical aftercare following surgery on the skin and subcutaneous tissue (principal); S31.105D Unspecified open wound of abdominal wall, periumbilic region without penetration into peritoneal cavity, subsequent encounter; X58.XXXD Exposure to other specified factors, subsequent encounter | CPT/HCPCS: 99212 ==

== ENCOUNTER → 2022-04-03 13:26 | Outpatient (BNVA) | payer MEDICARE, SELFPAY | PROVIDERS: PCP Nurse Practitioner; Referring Provider Nurse Practitioner; Visit Provider Surgery | DX: S31.105A Unspecified open wound of abdominal wall, periumbilic region without penetration into peritoneal cavity, initial encounter (principal); X58.XXXA Exposure to other specified factors, initial encounter; Z51.89 Encounter for other specified aftercare ==

== ENCOUNTER → 2022-04-06 11:40 | Outpatient (BNVA) | payer MEDICARE, SELFPAY | PROVIDERS: PCP Nurse Practitioner; Referring Provider Nurse Practitioner; Visit Provider Surgery | DX: Z51.89 Encounter for other specified aftercare (principal); S31.105D Unspecified open wound of abdominal wall, periumbilic region without penetration into peritoneal cavity, subsequent encounter; X58.XXXD Exposure to other specified factors, subsequent encounter | CPT/HCPCS: 99212 ==

== ENCOUNTER → 2022-04-13 13:20 | Outpatient (BNVA) | payer MEDICARE, SELFPAY | PROVIDERS: PCP Nurse Practitioner; Referring Provider Nurse Practitioner; Visit Provider Surgery | DX: Z51.89 Encounter for other specified aftercare (principal); S31.105D Unspecified open wound of abdominal wall, periumbilic region without penetration into peritoneal cavity, subsequent encounter; X58.XXXD Exposure to other specified factors, subsequent encounter | CPT/HCPCS: 99211 ==

== ENCOUNTER → 2022-05-01 10:08 | Outpatient (BNVA) | payer MEDICARE, SELFPAY | PROVIDERS: PCP Nurse Practitioner; Referring Provider Nurse Practitioner; Visit Provider Surgery | DX: Z48.817 Encounter for surgical aftercare following surgery on the skin and subcutaneous tissue (principal) | CPT/HCPCS: 99212 ==

== ENCOUNTER 2022-11-20 02:44 | Outpatient (CLI) | payer OTHER, SELFPAY ==
[2022-11-20 07:54] LABS: HCT 43.5 % (36.0-46.0); HGB 13.3 g/dL (11.2-15.7); MCH 24.4 pg (27.0-33.0); MCHC 30.6 % (32.0-36.0); MCV 80 fL (80-95); MPV 9.2 fL (8.0-11.0); Platelet Count 284 10^3/uL (130-400); RBC 5.46 10^6/uL (3.93-5.22); RDW 17.2 % (11.7-14.6); RDW-SD 49.1 fL
[2022-11-20 08:43] LABS: ALT 26 U/L (14-59); AST 16 U/L (15-37); Albumin 3.6 g/dL (3.4-5.0); Alkaline Phosphatase 91 U/L (46-116); Anion Gap 8.3 mmol/L (3-11); BUN 11 mg/dL (7-18); Bilirubin, Total 0.3 mg/dL (0.2-1.0); CO2 29.7 mmol/L (21.0-32.0); CREATININE 0.9 mg/dL (0.55-1.02); Calcium 8.9 mg/dL (8.5-10.1); Calculated LDL 98 mg/dL (<100); Chloride 100 mmol/L (98-107); Cholesterol 180 mg/dL (<200); Estimated GFR 71.83 (mL/min/1.73m2); Glucose 156 mg/dL (74-106); HDL Cholesterol 51 mg/dL (40-60); Potassium 3.9 mmol/L (3.5-5.1); Sodium 138 mmol/L (136-145); Total Protein 8.4 g/dL (6.4-8.2); Triglyceride 157 mg/dL (<150)
== END 2022-11-20 02:45 | disposition home or self-care (01) ==
LOC: LBO 02:44
PROVIDERS: Absent Provider Nurse Practitioner; PCP Nurse Practitioner; Referring Provider Nurse Practitioner; Visit Provider Nurse Practitioner
DX: I10 Essential (primary) hypertension (principal); E78.5 Hyperlipidemia, unspecified; E11.69 Type 2 diabetes mellitus with other specified complication; G89.29 Other chronic pain; E66.9 Obesity, unspecified
CPT/HCPCS: 36415; 80053; 80061; 85027

== ENCOUNTER 2023-05-07 15:47 | Outpatient (REF) | payer OTHER, SELFPAY ==
[2023-05-07 19:55] LABS: COVID-19 PCR Negative (Negative); Influenza A PCR Negative (Negative); Influenza B PCR Negative (Negative); RSV PCR Negative (Negative)
[2023-05-07 19:58] LABS: Source NASOPHARYNX
== END 2023-05-07 15:48 | disposition home or self-care (01) ==
LOC: LBN 15:47
PROVIDERS: PCP Nurse Practitioner; Visit Provider Nurse Practitioner
DX: J06.9 Acute upper respiratory infection, unspecified (principal)
CPT/HCPCS: 87637

== ENCOUNTER → 2023-10-02 03:42 | Outpatient (CLI) | payer OTHER, SELFPAY ==
--- NOTE | 2023-10-02 07:45 | DI.CTLCSR_ITS ---
Exam(s) CT CHEST LUNG CANCER SCREEN EXAM: CT CHEST LUNG CANCER SCREEN CLINICAL HISTORY: Screening for lung cancer,CURRENT SMOKER,F17.210 TECHNIQUE: Imaging Protocol: Axial computed tomography images with coronal and sagittal reformatted images were created and reviewed. Low dose screening protocol. COMPARISON: CR CHEST 2 VIEWS PA,LAT from 12/02/2014 FINDINGS: Tracheobronchial tree: No bronchiectasis or mucus plugging.. Mediastinum and [place]: No dominant adenopathy or fluid collection. Pulmonary parenchyma: No consolidation or dominant measurable mass. No visible emphysematous changes. Lung Nodules: None. Pleura: No effusion. No pneumothorax. Heart: The heart is not dilated. Moderate coronary artery calcifications are seen. Aorta: Thoracic aorta non-dilated. Moderate atherosclerotic calcification. Upper abdomen: Unremarkable. Bones: Severe degenerative changes at the lower thoracic and upper lumbar spine. Scoliosis. Severe degenerative changes of both shoulders. Soft Tissues: Unremarkable. IMPRESSION: No suspicious pulmonary nodules. Lung RADS Cat 1 - Negative: No nodules and definitely benign nodules Lung-RADS 1.0 CATEGORIES: Category 0 - Prior chest CT exam(s) being located for comparison. Category 1 - Annual screening in 12 months. No nodules or definitely benign nodules. Category 2 - Annual screening in 12 months. Benign appearance. Nodules with low likelihood of becomin g active cancer. Category 3 - 6-month follow-up. Probably benign. Short-term follow-up suggested. Nodules with low lik elihood of becoming active cancer. Category 4A - 3-month follow-up and CT/PET if >8 mm in size. Suspicious finding. Findings which requi re additional testing. Category 4B - Findings which require additional testing and tissue sampling. Category 4X - Category 3 or 4 nodules with additional features or imaging findings that increases the suspicion of malignancy. Modifier S- Potentially clinically significant findings (non lung cancer) RADIATION DOSE DELIVERED: Total DLP DATA REPOSITORY: All CT scans at this facility are submitted to the National Radiology Data Registry (NRDR) Dose Index Registry (DIR) with the [employer] ([employer]). RADIATION OPTIMIZATION: All CT scans at this facility use at least one of these dose optimization te chniques: automated exposure control; mA and/or kV adjustment per patient size (includes targeted exa ms where dose is matched to clinical indication); or iterative reconstruction.
== END ==
PROVIDERS: PCP Nurse Practitioner; Visit Provider Nurse Practitioner
DX: F17.210 Nicotine dependence, cigarettes, uncomplicated (principal); Z12.2 Encounter for screening for malignant neoplasm of respiratory organs
CPT/HCPCS: 71271